=== PATIENT | male | born 1995 | race African-American/Black ===

== ENCOUNTER 2023-09-07 16:34 | Emergency (ER) | payer BC, OTHER ==
[2023-09-07 17:10] LABS: #Basophils 0.1 thou/uL (0.0-0.2); #Eosinphils 0.1 thou/uL (0.0-0.7); #Lymphocytes 2.9 thou/uL (1.20-3.40); #Monocytes 0.1 thou/uL (0.11-0.59); #Neutrophils 1.1 thou/uL (1.40-6.50); %Basophils 1.6 % (0.0-1.0); %Eosinophils 1.5 % (0.0-10.0); %Lymphocytes 68.3 % (21.0-51.0); %Monocytes 2.9 % (0.0-10.0); %Neutrophils 25.8 % (42.0-75.0); Hematocrit 36.4 % (42.0-52.0); Hemoglobin 11.8 g/dL (14.0-18.0); Mean Corpuscular HGB CONC 32.3 g/dL (32.0-36.0); Mean Corpuscular Hemoglobin 29.1 pg (27.0-31.0); Mean Platelet Volume 8.8 fL (7.4-10.4); Platelet Count 61 10x3/uL (130-400); RBC Distribution Width 12.1 % (11.5-14.5); Red Blood Cell (RBC) Count 4.04 mill/uL (4.70-6.10); White Blood Cell (WBC) Count 4.3 10x3/uL (4.8-10.8)
[2023-09-07 17:13] LABS: ALT (SGPT) 265 U/L (8-55); AST (SGOT) 221 U/L (5-34); Albumin 2.9 g/dL (3.5-5.0); Alkaline Phosphatase 46 U/L (40-110); Anion Gap 29 mmol/L (10-20); BUN (Urea Nitrogen) 9 mg/dL (8.9-20.6); Bilirubin, Total 0.2 mg/dL (0.2-1.2); Calc. Creatinine Clearance 0 mL/min (70-130); Calcium 10.4 mg/dL (7.8-10.44); Carbon Dioxide 17 mmol/L (22-29); Chloride 100 mmol/L (98-107); Estimated GFR 59; Globulin 2.4 g/dL (2.4-3.5); Glucose 299 mg/dL (70-105); Potassium 3.2 mmol/L (3.5-5.1); Protein, Total 5.3 g/dL (6.0-8.3); Sodium 143 mmol/L (136-145)
== END 2023-09-07 19:25 | disposition expired ==
LOC: NAV ERS 16:34
DX: I46.9 Cardiac arrest, cause unspecified (principal)
CPT/HCPCS: 36430; 80053; 85025; 86850; 86900; 86901; 92950; G0390; P9016